=== PATIENT | male | born 1980 | race Asian ===

== ENCOUNTER 2017-07-22 10:39 | Emergency (ER) | payer OTHER ==
[~2017-07-22] VITALS: Ht 160 cm; Wt 80.3 kg
[2017-07-22] MEDS ORDERED: LISI20TA11 PO (10:53)
[2017-07-22] MEDS ORDERED: OXYCONTIN15 MG PO (10:53)
[2017-07-22] MEDS ORDERED: ALPR0.5T24 PO (10:53)
== END 2017-07-22 11:40 | disposition home or self-care (01) ==
LOC: ED 10:39
DX: M54.12 Radiculopathy, cervical region (principal); Z98.890 Other specified postprocedural states
CPT/HCPCS: 96372; 99282; J1885

== ENCOUNTER 2017-11-30 15:07 | Outpatient (CLI) | payer OTHER ==
[~2017-11-30 15:07] MED LIST: ALPR0.5T24 PO; LISI20TA11 PO; OXYCONTIN15 MG PO
== END 2017-11-30 23:59 | disposition home or self-care (01) ==
LOC: CT 15:07
DX: M54.5 Low back pain (principal)

== ENCOUNTER 2021-11-27 08:50 | Outpatient (CLI) | payer OTHER | END 2021-11-27 19:20 | disposition home or self-care (01) | LOC: MRI 08:50 | PROVIDERS: ATTEND Nurse Practitioner Family | DX: M25.561 Pain in right knee (principal) ==

== ENCOUNTER 2022-01-29 09:36 | Outpatient (CLI) | payer OTHER | END 2022-01-29 21:02 | disposition home or self-care (01) | LOC: MRI 09:36 | PROVIDERS: ATTEND Registered Nurse | DX: M54.2 Cervicalgia (principal) ==

== ENCOUNTER 2022-04-08 20:20 | Emergency (ER) | payer OTHER | END 2022-04-08 21:13 | disposition home or self-care (01) | LOC: ED 20:20 | DX: Z53.21 Procedure and treatment not carried out due to patient leaving prior to being seen by health care provider (principal) | CPT/HCPCS: 99281 ==